=== PATIENT | female | born 1970 | race Two or more races ===

== ENCOUNTER → 2021-09-12 | Outpatient (CLI) | payer OTHER ==
--- NOTE | 2021-09-13 08:44 | RAD ---
INDICATION: Reason: LOCALIZED SWELLING, MASS OR LUMP, THYROID FULLNESS, LOCAL EDEMA / Spl. Instructio ns: / History: COMPARISON: None. TECHNIQUE: Grayscale and color ultrasound images obtained of the thyroid. FINDINGS: Right Lobe: 57 x 20 x 16 mm. Left Lobe: 55 x 19 x 17 mm. Multiple bilateral thyroid nodules are identified with the dominant nodule within the right lobe appe aring solid and mildly hypoechoic but heterogenous in nature measuring 13 x 10 mm. There are some additional subcentimeter bilateral hypoechoic thyroid nodules. Largest on the left elza sures up to 5 mm. IMPRESSION: * Bilateral thyroid nodules are identified with the largest within the right lobe appearing solid i n nature with internal vascularity measuring up to 13 mm. Follow-up could be obtained in one year to ensure no growth. Electronically signed by: Go De Santiago MD (09/13/2021 8:42 AM) [id number]
== END ==
LOC: US 15:02
PROVIDERS: ATTEND Internal Medicine
DX: E04.2 Nontoxic multinodular goiter (principal); E07.89 Other specified disorders of thyroid; R22.1 Localized swelling, mass and lump, neck
CPT/HCPCS: 76536